=== PATIENT | male | born 1990 | race African-American/Black ===

== ENCOUNTER 2016-10-08 22:20 | Emergency (ER) | payer MEDICAID ==
[~2016-10-08] VITALS: Ht 175.3 cm; Wt 68.0 kg
[2016-10-09 02:04] VITALS: BP 122/72
[2016-10-09] MEDS ORDERED: ACETAMINOPHEN/CODEINE#3 (300/30mg) TAB PO ONE (02:15)
== END 2016-10-09 02:28 | disposition home or self-care (01) ==
LOC: ER 22:23
DX: S62.323A Displaced fracture of shaft of third metacarpal bone, left hand, initial encounter for closed fracture (principal); W22.8XXA Striking against or struck by other objects, initial encounter; Y93.89 Activity, other specified; Y99.8 Other external cause status; Y92.89 Other specified places as the place of occurrence of the external cause
CPT/HCPCS: 29125; 73130

== ENCOUNTER 2018-12-01 19:46 | Emergency (ER) | payer MEDICAID | END 2018-12-01 20:54 | disposition left against medical advice (07) | LOC: ER 19:50 | DX: M54.9 Dorsalgia, unspecified (principal); Z53.21 Procedure and treatment not carried out due to patient leaving prior to being seen by health care provider ==